=== PATIENT | male | born 1965 | race Caucasian/White ===

== ENCOUNTER → 2017-03-15 | Outpatient (CLI) | payer BC ==
[2017-03-15 09:29] LABS: HEMOGLOBIN 13.7 g/dL (14.1-18.0); LYMPH # 1.5 K/mm3 (0.7-4.5); LYMPH % 30.7 % (10-50)
[2017-03-15 11:00] LABS: BUN 20 mg/dL (7-18)
[2017-03-15 11:03] LABS: GFR (ESTIMATED) 71 ML/MIN (>60)
== END ==
LOC: LAB 09:06
PROVIDERS: Internal Medicine Adolescent Medicine
DX: I25.10 Atherosclerotic heart disease of native coronary artery without angina pectoris (principal); I11.9 Hypertensive heart disease without heart failure; I49.1 Atrial premature depolarization; I20.8 Other forms of angina pectoris; E78.5 Hyperlipidemia, unspecified; R09.89 Other specified symptoms and signs involving the circulatory and respiratory systems

== ENCOUNTER → 2017-06-13 | Outpatient (CLI) | payer BC | LOC: RT 05-31 07:00 → RAD 05-31 07:00 → RT 05-31 08:30 | DX: I25.10 Atherosclerotic heart disease of native coronary artery without angina pectoris (principal); I11.9 Hypertensive heart disease without heart failure; I20.8 Other forms of angina pectoris; E78.5 Hyperlipidemia, unspecified; R09.89 Other specified symptoms and signs involving the circulatory and respiratory systems ==